=== PATIENT | female | born 1955 | race Caucasian/White ===

== ENCOUNTER 2020-05-24 02:34 | Inpatient (IN) | payer OTHER ==
[~2020-05-24] VITALS: Ht 160 cm; Wt 80.3 kg
[2020-05-24] VITALS (7 sets, daily range): BP systolic 127–163; BP diastolic 54–97
[2020-05-24] MEDS ORDERED: LOPRESSOR50 MG PO (02:44)
[2020-05-24] MEDS ORDERED: SIMVASTATIN80 MG PO (02:45)
[2020-05-24 03:10] LABS: ABSOLUTE BASOPHILS 0.1 thou/uL (0.0-0.2); ABSOLUTE EOSINOPHILS 0.3 thou/uL (0.0-0.7); ABSOLUTE LYMPHOCYTES 3.4 thou/uL (0.8-5.3); ABSOLUTE MONOCYTES 0.9 thou/uL (0.0-1.2); ABSOLUTE NEUTROPHILS 8.4 thou/uL (1.6-8.1); BASOPHILS 1.1 %; EOSINOPHILS 2.3 %; HEMATOCRIT 41.5 % (37.0-47.0); HEMOGLOBIN 13.3 gm/dL (12.0-15.0); MCH 28.2 pg (26.0-34.0); MCHC 32.2 g/dL (28.0-37.0); MCV 87.6 fL (80.0-100.0); MONOCYTES 6.7 %; MPV 8.3 fl. (7.2-11.1); NUCLEATED RBCS 0 /100WBC; PLATELET COUNT* 250 thou/uL (150-400); POLYS 63.9 %; RBC 4.74 mil/uL (4.20-5.00); RDW-CV 14.4 % (10.5-14.5); WBC 13.1 thou/uL (4.0-11.0)
[2020-05-24 03:15] LABS: INFLUENZA A ANTIGEN Negative (Negative); INFLUENZA B ANTIGEN Negative (Negative)
[2020-05-24 03:34] LABS: APTT 24.5 Seconds (25.0-31.3); PROTIME 10.2 Seconds (9.20-11.50)
[2020-05-24 03:38] LABS: BE -5.4 mmol/L (-2 to +3); PCO2 48.8 mmHg (35.0-45.0); PO2 100.1 mmHg (75.0-100.0)
[2020-05-24 03:46] LABS: CALCIUM 8.8 mg/dL (8.5-10.1); CREATININE 0.7 mg/dL (0.6-1.3); POTASSIUM 3.7 mmol/L (3.5-5.1)
[2020-05-24 03:50] LABS: ALBUMIN 3.8 g/dL (3.4-5.0); TOTAL BILIRUBIN 0.5 mg/dL (<0.1-1.0); TOTAL PROTEIN 6.9 g/dL (6.4-8.2)
[2020-05-24 03:52] LABS: pH 7.268 (7.340-7.450)
[2020-05-24 07:32] LABS: BE -4.3 mmol/L (-2 to +3); PCO2 38.9 mmHg (35.0-45.0); pH 7.348 (7.340-7.450)
[2020-05-24 20:51] LABS: URINE BILIRUBIN NEGATIVE (Negative); URINE BLOOD NEGATIVE (Negative); URINE CLARITY CLEAR; URINE COLOR YELLOW; URINE GLUCOSE-RANDOM 2+ (Negative); URINE KETONES NEGATIVE (Negative); URINE LEUKOCYTES-REFLEX NEGATIVE (Negative); URINE NITRITE-REFLEX NEGATIVE (Negative); URINE PROTEIN NEGATIVE (Negative); URINE SPECIFIC GRAVITY 1.015 (1.005-1.030); URINE UROBILINOGEN 0.2 E.U./dl (0.2-1.0)
[2020-05-25] VITALS: BP 128/76
[2020-05-25 04:00] VITALS: BP 134/80
[2020-05-25 08:00] VITALS: BP 131/76
[2020-05-25 11:00] VITALS: BP 137/87
[2020-05-25 13:35] LABS: CALCIUM 8.1 mg/dL (8.5-10.1); CREATININE 0.6 mg/dL (0.6-1.3); POTASSIUM 3.7 mmol/L (3.5-5.1)
[2020-05-25 13:39] LABS: PHOSPHORUS* 2.8 mg/dL (2.5-4.9)
--- NOTE | 2020-05-25 14:09 | CON ---
[address] [address] CONSULTATION Name: GAMALIEL DELGADO Room: [address] IN M.R.#: [id number] Admission: 05/24/20 Attend Phys: Julian Sams, Discharge: Date of : 59 Report #: [id number] THIS REPORT FOR: cc: FAM - No family physician/PCP FAM - No family physician/PCP ~ Bronson Jacobo MD [facility] CARDIOLOGY CONSULTATION HISTORY OF PRESENT ILLNESS: I was asked by Dr. Sams to see this 65-year-old white female in cardiology consultation for evaluation and treatment of possible cardiomegaly on a chest x-ray. This lady was admitted with pneumonia. She has bilateral lower lobe infiltrates. She has been sick for about 2 weeks. She has been quite short of breath. She was COVID test negative and influenza test negative. She does have essential hypertension and hypercholesterolemia. She does smoke. She has never had asthma or was never diagnosed with COPD. She has been given steroids and antibiotics and DuoNeb and is feeling better. Her home medications have been metoprolol, she does not know the dose twice a day and simvastatin she does not know the dose at bedtime. She has been out of her metoprolol for some time as she has lost her job and is out of work. She has been taking her simvastatin. PAST MEDICAL HISTORY: Otherwise, unremarkable. ALLERGIES: She denies any allergies. REVIEW OF SYSTEMS: Negative for some 45 different complaints in 14 different system categories. Please see review of system form for details and negatives in review of systems. SOCIAL HISTORY: Unremarkable other than she is now unemployed. FAMILY HISTORY: Unremarkable. PHYSICAL EXAMINATION: GENERAL: She presents as a well-developed, well-nourished white female, in no acute distress. VITAL SIGNS: Pulse was 85 and regular, respirations were 18-20 and regular, blood pressure was 130/85, temperature was 98 degrees. HEENT: His head was atraumatic. Eyes clear. NECK: Supple. There is no jugular venous distention or hepatojugular reflux. Thyroid is not enlarged. There is no adenopathy. SKIN: Warm and dry. Mucous membranes are moist. LUNGS: Clear to auscultation and percussion. HEART: Revealed normal first and second heart sound. There is soft S4. There is no S3. There are no murmurs, rubs, thrills, heaves [place] [address] CONSULTATION Name: GAMALIEL DELGADO Room: [address]#: [id number] Admission: 05/24/20 Attend Phys: Julian Sams, Discharge: Date of : 59 Report #: [id number] nondisplaced. ABDOMEN: Soft, flat and nontender. No palpable masses, no organomegaly. EXTREMITIES: Reveal no cyanosis, clubbing or edema. NEUROLOGIC: The patient mentated normally, talked normally, moved all extremities normally. LABORATORY DATA: Her EKG showed sinus tachycardia, heart rate was 125. There were 2 VPCs. Otherwise, it is unremarkable. The chest x-ray was read by radiologist, possibly showing pneumonia; however, the hospital read as normal heart size. IMPRESSION: 1. Pneumonia, bilateral lower lobe. 2. Cardiomegaly. 3. Essential hypertension. 4. Hypercholesterolemia. 5. Smoking. RECOMMENDATION: She should get a PA and lateral film and AP film is not helpful for defining the true heart size and she should get an echo. Thank you very much for asking me to see patient. If there are any questions, please feel free to contact me. <ELECTRONICALLY SIGNED> By: Bronson Jacobo MD, FACC 05/25/20 1409 [id number]. Demetrio Jacobo MD, FACC /nt
[2020-05-25 17:00] VITALS: BP 135/87
[2020-05-25 20:00] VITALS: BP 138/78
[2020-05-26] VITALS: BP 136/76
[2020-05-26 04:00] VITALS: BP 128/74
[2020-05-26 08:00] VITALS: BP 149/86
[2020-05-26 08:33] LABS: ANION GAP 6 mmol/L (7-16); BUN 15 mg/dL (7-18); CALCIUM 8.4 mg/dL (8.5-10.1); CHLORIDE 107 mmol/L (98-107); CHOLESTEROL 183 mg/dL (<200); CO2 30 mmol/L (21-32); CREATININE 0.6 mg/dL (0.6-1.3); GLUCOSE 94 mg/dL (70-99); HDL CHOLESTEROL 51 mg/dL (>40); LDL CHOLESTEROL 117 mg/dL (<100); POTASSIUM 3.7 mmol/L (3.5-5.1); SODIUM 143 mmol/L (136-145); TC:HDL 3.6 Ratio (Not establshd); TRIGLYCERIDE 77 mg/dL (<150); VLDL 15 mg/dL (<40)
[2020-05-26 08:34] LABS: SERUM ASSESSMENT Clear
[2020-05-26 12:08] VITALS: BP 133/73
--- NOTE | 2020-05-26 13:35 | 2DMMODE ---
[place] [address] 2 D/M-MODE ECHOCARDIOGRAM Name: GAMALIEL DELGADO Room: [address] IN [facility].#: [id number] Admission: 05/24/20 Attend Phys: Julian Ramos Discharge: Date of : 59 Date of Service: 05/26/20 1334 Report #: [id number] THIS REPORT FOR: cc: FAM - No family physician/PCP FAM - No family physician/PCP Eb De La Torre MD [facility] ~ APPROVED REPORT Study performed: 05/26/2020 10:50:24 EXAM: Comprehensive 2D, Doppler, and color-flow Echocardiogram Patient Location: In-Patient Room #: [facility] Status: routine BSA: 1.84 HR: 95 bpm BP: 128/74 mmHg Rhythm: NSR Other Information Study Quality: Good Indications ENLARGED HEART 2D Dimensions IVSd: 13.13 (7-11mm) LVOT Diam: 19.95 (18-24mm) LVDd: 53.93 mm PWd: 8.14 (7-11mm) Ascending Ao: 32.68 (22-36mm) LVDs: 41.88 (25-40mm) Aortic Root: 29.53 mm Volumes Left Atrial Volume (Systole) LA ESV Index: 49.20 mL/m2 Aortic Valve AoV Peak Jacobo.: 2.19 m/s AO Peak Gr.: 19.20 mmHg LVOT Max P.90 mmHg AO Mean Gr.: 10.35 mmHg LVOT Mean P.99 mmHg LVOT Max V: 1.41 m/s AO V2 VTI: 33.52 cm LVOT Mean V: 0.92 m/s DARIUS (VTI): 2.16 cm2 LVOT V1 VTI: 23.21 [place] [address] 2 D/M-MODE ECHOCARDIOGRAM Name: GAMALIEL DELGADO Room: [address]#: [id number] Admission: 05/24/20 Attend Phys: Julian Ramos Discharge: Date of : 59 Date of Service: 05/26/20 1334 Report #: [id number] Mitral Valve E/A Ratio: 0.78 MV Decel. Time: 192.69 ms MV E Max Jacobo.: 1.48 m/s MV PHT: 55.88 ms MVA (PHT): 3.94 cm2 TDI E/Lateral E': 11.38 E/Medial E': 16.44 Medial E' Jacobo.: 0.09 m/s Lateral E' Jacobo.: 0.13 m/s Pulmonary Valve PV Peak Jacobo.: 1.23 m/s PV Peak Gr.: 6.02 mmHg Left Ventricle The left ventricle is normal size. There is normal LV segmental wall motion. Mild concentric left ventricular hypertrophy. Left ventricular systolic function is normal. The left ventricular ejection fraction is within the normal range. LVEF is 50-55%. Grade I - abnormal relaxation pattern. Right Ventricle The right ventricle is normal size. The right ventricular systolic function is normal. Atria Left atrium is moderately dilated. The right atrium size is normal. Aortic Valve The aortic valve is normal in structure. No aortic regurgitation is present. There is no aortic valvular stenosis. Mitral Valve The mitral valve is normal in structure. Moderate mitral regurgitation. No evidence of mitral valve stenosis. Tricuspid Valve The tricuspid valve is normal in structure. Unable to assess PA pressure. Trace tricuspid regurgitation. Pulmonic Valve The pulmonary valve is normal in structure. [place] [address] 2 D/M-MODE ECHOCARDIOGRAM Name: SANDYGAMALIEL E Room: [address]#: [id number] Admission: 05/24/20 Attend Phys: Julian Ramos Discharge: Date of : 59 Date of Service: 05/26/20 1334 Report #: [id number] Great Vessels The aortic root is normal in size. IVC is normal in size and collapses >50% with inspiration. Pericardium There is no pericardial effusion. <Conclusion> The left ventricle is normal size. Mild concentric left ventricular hypertrophy. Left ventricular systolic function is normal. The left ventricular ejection fraction is within the normal range. LVEF is 50-55%. Grade I - abnormal relaxation pattern. The right ventricle is normal size. Left atrium is moderately dilated. The right atrium size is normal. The aortic valve is normal in structure. The mitral valve is normal in structure. Moderate mitral regurgitation. No evidence of mitral valve stenosis. The tricuspid valve is normal in structure. IVC is normal in size and collapses >50% with inspiration. There is no pericardial effusion. There is normal LV segmental wall motion. <ELECTRONICALLY SIGNED> By: Eb De La Torre MD, FACC 05/26/20 1334 1334 1334 Eb De La Torre MD, FACC /INF
--- NOTE | 2020-05-26 15:05 | EKG ---
[place] [address] ELECTROCARDIOGRAM REPORT Name: GAMALIEL DELGADO Room: [address] ADM IN M.R.#: [id number] Admission: 05/24/20 Attend Phys: Julian Ramos Discharge: Date of : 59 Date of Service: 05/24/20 0238 Report #: [id number] THIS REPORT FOR: //name// [facility] ED Test Date: 2020-05-24 Test Time: 02:38:06 Pat Name: GAMALIEL DELGADO Department: Room: [address] Gender: F Track Manager: BOBBI : 1955 Requested By: Gaby Yanez Order Number: [id number] Elio MD: bE De La Torre Measurements Intervals [place] Rate: 125 P: -43 HI: 151 QRS: 65 QRSD: 110 T: 76 QT: 331 QTc: 478 Interpretive Statements Sinus tachycardia Paired ventricular premature complexes Borderline low voltage, extremity leads No previous ECG available for comparison Electronically Signed On 05-26-2020 15:04:49 STEM LEAD FORMER by Eb De La Torre [email or web address] <ELECTRONICALLY SIGNED> By: Eb De La Torre MD, [facility] 05/26/20 1504 0238 0238 Eb De La Torre MD, [facility] /EPI
[2020-05-26 15:36] VITALS: BP 115/75
[2020-05-26 20:00] VITALS: BP 146/80
[2020-05-27] VITALS (7 sets, daily range): BP systolic 114–128; BP diastolic 55–76
[2020-05-27 04:34] LABS: HEMATOCRIT 36.1 % (37.0-47.0); MCH 28.6 pg (26.0-34.0); MCHC 33.2 g/dL (28.0-37.0); MCV 85.9 fL (80.0-100.0); MPV 8.4 fl. (7.2-11.1); NUCLEATED RBCS 0 /100WBC; PLATELET COUNT* 215 thou/uL (150-400); RDW-CV 14.4 % (10.5-14.5); WBC 6.2 thou/uL (4.0-11.0)
[2020-05-27 04:55] LABS: ALBUMIN 3.2 g/dL (3.4-5.0); CALCIUM 9.2 mg/dL (8.5-10.1); CREATININE 0.7 mg/dL (0.6-1.3); POTASSIUM 4.4 mmol/L (3.5-5.1); TOTAL BILIRUBIN 0.6 mg/dL (<0.1-1.0); TOTAL PROTEIN 6.1 g/dL (6.4-8.2)
[2020-05-27 06:01] LABS: ABSOLUTE LYMPHOCYTES 0.4 thou/uL (0.8-5.3); ABSOLUTE NEUTROPHILS 5.8 thou/uL (1.6-8.1); ANISOCYTOSIS 1+; PLATELET ESTIMATE ADEQUATE; POIKILOCYTOSIS 1+
[2020-05-28 04:00] VITALS: BP 117/78
[2020-05-28 04:25] LABS: ABSOLUTE MONOCYTES 0.5 thou/uL (0.0-1.2); ABSOLUTE NEUTROPHILS 8.7 thou/uL (1.6-8.1); BASOPHILS 0.1 %; HEMOGLOBIN 12.3 gm/dL (12.0-15.0); MCH 27.8 pg (26.0-34.0); MCHC 32.3 g/dL (28.0-37.0); MCV 86.2 fL (80.0-100.0); MONOCYTES 4.9 %; MPV 8.6 fl. (7.2-11.1); NUCLEATED RBCS 0 /100WBC; PLATELET COUNT* 241 thou/uL (150-400); RBC 4.41 mil/uL (4.20-5.00); RDW-CV 14.4 % (10.5-14.5); WBC 10.2 thou/uL (4.0-11.0)
[2020-05-28 04:48] LABS: ALBUMIN 3.1 g/dL (3.4-5.0); CALCIUM 9.1 mg/dL (8.5-10.1); CREATININE 0.7 mg/dL (0.6-1.3); TOTAL BILIRUBIN 0.4 mg/dL (<0.1-1.0); TOTAL PROTEIN 6.5 g/dL (6.4-8.2)
[2020-05-28 08:00] VITALS: BP 119/69
[2020-05-28 12:32] VITALS: BP 110/67
[2020-05-28 16:57] VITALS: BP 112/55
[2020-05-28] MEDS ORDERED: CEFDINIR300 MG PO (17:03)
[2020-05-28] MEDS ORDERED: LISINOPRIL5 MG PO (17:07)
[2020-05-28] MEDS ORDERED: LASIX 40 MG TAB40 M2 PO (17:07)
[2020-05-28] MEDS ORDERED: POTASSIUM20 PO (17:08)
[2020-05-28] MEDS ORDERED: PREDNISONE 10 M10 MG PO (17:10)
[2020-05-28] MEDS ORDERED: PROTONIX40 M4 PO (17:10)
[2020-05-28 17:18] VITALS: BP 112/55
== END 2020-05-28 18:45 | disposition home or self-care (01) | DRG 291 ==
LOC: M.ERS 02:34 → M.2W 03:46 → M.TBA-ER 03:46 → M.2W 05:55
PROVIDERS: Internal Medicine; Internal Medicine Critical Care Medicine; Personal Emergency Response Attendant; Registered Nurse; ADMIT Family Medicine; ATTEND Family Medicine
DX: I11.0 Hypertensive heart disease with heart failure (principal); J18.9 Pneumonia, unspecified organism; J96.01 Acute respiratory failure with hypoxia; I50.31 Acute diastolic (congestive) heart failure; J44.1 Chronic obstructive pulmonary disease with (acute) exacerbation; J44.0 Chronic obstructive pulmonary disease with (acute) lower respiratory infection; E78.00 Pure hypercholesterolemia, unspecified; F17.210 Nicotine dependence, cigarettes, uncomplicated; E78.5 Hyperlipidemia, unspecified; E87.70 Fluid overload, unspecified; I34.0 Nonrheumatic mitral (valve) insufficiency; R59.1 Generalized enlarged lymph nodes; Z20.828 Contact with and (suspected) exposure to other viral communicable diseases; Z82.49 Family history of ischemic heart disease and other diseases of the circulatory system; Z83.6 Family history of other diseases of the respiratory system; Z80.1 Family history of malignant neoplasm of trachea, bronchus and lung